=== PATIENT | female | born 1990 | race Caucasian/White ===

== ENCOUNTER 2021-10-03 12:00 | Outpatient (CLI) | payer MEDICAID, SELFPAY ==
--- NOTE | 2021-10-03 12:23 | ECG_ITS ---
Measurements Intervals [place] Rate: 56 P: 34 [place]: 132 QRS: 80 QRSD: 102 T: 48 QT: 397 QTc: 385 Interpretive Statements SINUS BRADYCARDIA POSSIBLE LEFT ATRIAL ENLARGEMENT [-0.1mV P-WAVE IN V1/V2] INDETERMINATE AXIS INCOMPLETE RIGHT BUNDLE BRANCH BLOCK [90+ ms QRS DURATION, TERMINAL R IN V1/V2, 40+ ms S IN I/aVL/V4/V5/V6] NONSPECIFIC ST ABNORMALITY ABNORMAL ECG NO PREVIOUS ECG AVAILABLE FOR COMPARISON Electronically Signed On 10-03-2021 12:31:22 CDT by Sandip Hastings M.D.
== END 2021-10-03 12:01 | disposition home or self-care (01) ==
LOC: CHSCARD 12:14
PROVIDERS: PCP Family Medicine; Visit Provider Family Medicine
DX: R42 Dizziness and giddiness (principal)
CPT/HCPCS: 93005

== ENCOUNTER 2021-10-11 14:05 | Outpatient (CLI) | payer MEDICAID, SELFPAY ==
--- NOTE | ~2021-10-11 | XR_ITS ---
EXAMINATION: XR shoulder LT min 2V DATE: 10/11/2021 14:39 INDICATION: Left shoulder pain. TECHNIQUE: 4 views of left shoulder were obtained. COMPARISON: None. FINDINGS: Bone alignment is normal. No fracture. Joint spaces are well maintained. IMPRESSION: 1. Normal left shoulder. Reviewed, dictated and finalized at location A. IMPRESSION: 1. Normal left shoulder.
--- NOTE | ~2021-10-11 | XR_ITS ---
EXAMINATION: XR lumbar spine 2-3V DATE: 10/11/2021 14:38 INDICATION: Low back pain TECHNIQUE: Anteroposterior and lateral views of the lumbar spine, and cone-down lateral view of the l umbosacral junction were obtained. COMPARISON: None. FINDINGS: There is no fracture, dislocation, or subluxation. The vertebral body heights, alignment, a nd intervertebral disc spaces are normal. The paravertebral soft tissues are unremarkable. IMPRESSION: 1. No acute osseous abnormality. Reviewed, dictated and finalized at location F.
== END 2021-10-11 14:06 | disposition home or self-care (01) ==
LOC: CHSIMG 14:07
PROVIDERS: PCP Internal Medicine; Visit Provider Nurse Practitioner Family
DX: M54.50 Low back pain, unspecified (principal); M25.512 Pain in left shoulder
CPT/HCPCS: 72100; 73030

== ENCOUNTER 2021-10-21 08:22 | Outpatient (CLI) | payer OTHER, SELFPAY ==
--- NOTE | ~2021-10-21 | MR_ITS ---
EXAMINATION: MR brain/brain stem wo con DATE: 10/21/2021 09:46 INDICATION: Headache, dizziness and vision changes TECHNIQUE: Magnetic resonance imaging (MRI) of the brain and brainstem was performed without intraven ous contrast. Sequences included sagittal and axial T1-weighted SE, axial diffusion-weighted FS SE, a xial T2*-weighted GRE, axial 3D SWAN, axial T2-weighted FLAIR, and axial T2-weighted FSE. Apparent di ffusion coefficient (ADC) maps were created. COMPARISON: None. FINDINGS: There are no areas of restricted diffusion to suggest acute infarction. No intracranial hemorrhage or abnormal intracranial mass lesion. There are no intraparenchymal signal abnormalities seen on the ot her pulse sequences. The ventricles are symmetric and normal in size. There are no abnormal extra-axi al fluid collections. Flow voids are seen in the cerebral arteries on the T2-weighted sequences consi stent with their expected patency. Visualized orbits and soft tissues are unremarkable. IMPRESSION: 1. Normal brain MR. Reviewed, dictated and finalized at location A. IMPRESSION: 1. Normal brain MR.
== END 2021-10-21 08:23 | disposition home or self-care (01) ==
PROVIDERS: PCP Internal Medicine; Visit Provider Nurse Practitioner Family
DX: R51.9 Headache, unspecified (principal); R42 Dizziness and giddiness; H53.9 Unspecified visual disturbance
CPT/HCPCS: 70551